=== PATIENT | male | born 2000 | race Caucasian/White ===

== ENCOUNTER 2021-08-08 11:11 | Emergency (ER) | payer SELFPAY ==
[2021-08-08] MEDS ORDERED: BACTROBAN OINT22 GM EXT (11:36)
[2021-08-08] MEDS ORDERED: IBUPROFEN600 MG PO (11:36)
== END 2021-08-08 12:03 | disposition home or self-care (01) ==
LOC: ER1 11:11
DX: S68.125A Partial traumatic metacarpophalangeal amputation of left ring finger, initial encounter (principal); W26.0XXA Contact with knife, initial encounter; Y92.89 Other specified places as the place of occurrence of the external cause; Y99.0 Civilian activity done for income or pay
CPT/HCPCS: 90471; 90715; 99283